=== PATIENT | male | born 1985 | race Caucasian/White ===

== ENCOUNTER 2022-07-19 18:45 | Inpatient (IN) | payer OTHER ==
[2022-07-19 19:18] VITALS: BMI 32.5
[2022-07-19] MEDS ORDERED: METHOCARBAMOL 500 MG TABLET PO PRN (21:52)
[2022-07-19] MEDS ORDERED: MAGNESIUM CITRATE 300 ML BOTTLE PO PRN (21:52)
[2022-07-19] MEDS ORDERED: guaiFENesin 200 MG/10 ML 10 ML UNIT-DOSE CUPS PO PRN (21:52)
[2022-07-19] MEDS ORDERED: NALOXONE HCL 0.4 MG/ML VIAL IM PRN (21:52)
[2022-07-19] MEDS ORDERED: ACETAMINOPHEN 325 MG TABLET (FP) PO PRN ×2 (21:52)
[2022-07-19] MEDS ORDERED: IBUPROFEN 600 MG TABLET (FP) PO PRN (21:52)
[2022-07-19] MEDS ORDERED: LOPERAMIDE HCL 2 MG CAPSULE PO PRN (21:52)
[2022-07-19] MEDS ORDERED: ONDANSETRON *ODT* 4 MG TABLET SL PRN (21:52)
[2022-07-19] MEDS ORDERED: hydrOXYzine PAMOATE 25 MG CAPSULE (FP) PO PRN (21:52)
[2022-07-19] MEDS ORDERED: IBUPROFEN 400 MG TABLET (FP) PO PRN (21:52)
[2022-07-19] MEDS ORDERED: BENZOCAINE/MENTHOL (CHLORASEPTIC ) LOZENGE MM PRN (21:52)
[2022-07-19] MEDS ORDERED: NICOTINE 10 MG CARTRIDGE (INHALER) IH PRN (21:52)
[2022-07-19] MEDS ORDERED: P-EPHED 60MG/TRIPROLIDI 2.5MG TABLET PO PRN (21:52)
[2022-07-19] MEDS ORDERED: MAGNESIUM HYDROX 2400MG/30ML ORAL SUSPENSION 30 ML CUP PO PRN (21:52)
[2022-07-19] MEDS ORDERED: NALOXONE HCL (KLOXXADO) 8 MG SPRAY NS PRN (21:52)
[2022-07-19] MEDS ORDERED: DICYCLOMINE HCL 10 MG CAPSULE PO PRN (21:52)
[2022-07-19] MEDS ORDERED: MAG HYDROX/AL HYDROX/SIMETH 30 ML UNIT-DOSE CUP PO PRN (21:52)
[2022-07-19] MEDS ORDERED: BISMUTH SUBSALICYLATE 524 MG/30 ML PO PRN (21:52)
[2022-07-19] MEDS: MELATONIN 5 MG TABLETS PO SCH (22:59)
[2022-07-19] MEDS: THIAMINE HCL 100 MG TABLET (FP) PO SCH (23:00)
[2022-07-20] MEDS: PRENATAL VITAMINS W/ FOLIC ACID TABLET (FP) PO SCH (10:40)
[2022-07-20] MEDS: NICOTINE POLACRILEX 2 MG GUM BUC PRN ×2 (11:29→19:16)
[2022-07-20 15:35] LABS: HEMATOCRIT 42.7 % (35.4-49); HEMOGLOBIN 14.1 GM/dL (11.7-16.9); MCH 29.4 pg (25.7-33.7); MEAN CELL VOLUME 89.1 fl (80-96); MEAN PLT VOLUME 7.4 fl (7.5-11.1); PLATELET COUNT 354 10^3/uL (134-434); RBC 4.79 M/mm3 (4.00-5.60); RDW 13.8 % (11.9-15.9); WHITE BLOOD COUNT 7.1 K/mm3 (4.0-10.0)
[2022-07-20 17:15] LABS: CALCIUM 9.3 mg/dL (8.5-10.1)
[2022-07-20 17:16] LABS: ALBUMIN 3.7 g/dl (3.4-5.0); BLOOD UREA NITROGEN 13.2 mg/dL (7-18)
[2022-07-20 17:19] LABS: CREATININE 0.7 mg/dL (0.55-1.3)
[2022-07-20 17:23] LABS: BILIRUBIN,TOTAL 0.2 mg/dL (0.2-1)
[2022-07-20] MEDS: MELATONIN 5 MG TABLETS PO SCH (22:14)
[2022-07-20] MEDS: THIAMINE HCL 100 MG TABLET (FP) PO SCH (22:14)
[2022-07-21] MEDS: NICOTINE POLACRILEX 2 MG GUM BUC PRN (09:18)
[2022-07-21] MEDS ORDERED: SERTRALINE HCL 50 MG TABLET (FP) PO SCH (10:00)
[2022-07-21] MEDS: PRENATAL VITAMINS W/ FOLIC ACID TABLET (FP) PO SCH (10:36)
[2022-07-21 14:12] VITALS: BP 142/97; PULSE 122; RESP 18; TEMP 97.5
[2022-07-21] MEDS ORDERED: QUEtiapine FUMARATE 50 MG TABLET PO SCH (22:00)
[2022-07-21] MEDS ORDERED: guaiFENesin 600 MG TABLET.ER (FP) PO SCH (22:00)
== END 2022-07-21 14:17 | disposition other institution (70) | DRG 773 ==
LOC: YASAS 18:45 → Y6N 22:50
PROVIDERS: ADMIT Allergy & Immunology; ATTEND Surgery
PROC: HZ2ZZZZ Detoxification Services for Substance Abuse Treatment (ICD-10-PCS; principal; 2022-07-19)
DX: F11.20 Opioid dependence, uncomplicated (principal); F14.20 Cocaine dependence, uncomplicated; F17.210 Nicotine dependence, cigarettes, uncomplicated; F19.282 Other psychoactive substance dependence with psychoactive substance-induced sleep disorder; F19.280 Other psychoactive substance dependence with psychoactive substance-induced anxiety disorder; F19.24 Other psychoactive substance dependence with psychoactive substance-induced mood disorder; F31.9 Bipolar disorder, unspecified; F43.10 Post-traumatic stress disorder, unspecified; Z62.810 Personal history of physical and sexual abuse in childhood; Z56.0 Unemployment, unspecified; Z59.00 Homelessness unspecified
CPT/HCPCS: 36415; 80053; 85027; 86780; 87811; C9803-CS; U0003; U0005